=== PATIENT | male | born 1975 | race Caucasian/White ===

== ENCOUNTER 2022-06-22 17:09 | Outpatient (CLI) | payer BC, SELFPAY ==
[2022-06-22 17:41] LABS: Chloride* 104 mmol/L (96-114); Sodium* 141 mmol/L (135-149)
[2022-06-22 17:42] LABS: Potassium* 3.9 mmol/L (3.6-5.1)
[2022-06-22 17:44] LABS: Blood Urea Nitrogen* 23 mg/dL (5-24); Carbon Dioxide* 25 mmol/L (20-32); Creatinine* 1.2 mg/dL (0.5-1.5); Estimated Glomerular Filt Rate 76 ml/min
[2022-06-22 17:45] LABS: Calcium* 9.2 mg/dL (8.4-10.6); Glucose* 99 mg/dL (60-115)
== END 2022-06-22 17:10 | disposition home or self-care (01) ==
LOC: NFLDREF 17:10
PROVIDERS: PCP Family Medicine; Visit Provider Family Medicine
DX: Z01.818 Encounter for other preprocedural examination (principal)
CPT/HCPCS: 80048

== ENCOUNTER 2022-06-27 09:11 | Outpatient (CLI) | payer BC, SELFPAY ==
[2022-06-27 15:42] LABS: SARS PCR* Negative SARS-CoV-2 (Negative)
== END 2022-06-27 09:12 | disposition home or self-care (01) ==
LOC: FBOREF 09:12
PROVIDERS: PCP Family Medicine; Visit Provider Family Medicine
DX: Z11.52 Encounter for screening for COVID-19 (principal)
CPT/HCPCS: 87635

== ENCOUNTER 2023-04-29 07:46 | Outpatient (CLI) | payer BC, SELFPAY | END 2023-04-29 07:47 | disposition home or self-care (01) | PROVIDERS: PCP Family Medicine; Visit Provider Family Medicine | DX: E78.5 Hyperlipidemia, unspecified (principal); Z13.9 Encounter for screening, unspecified | CPT/HCPCS: 80048; 84460; 85025 ==

== ENCOUNTER 2023-07-04 08:03 | Day surgery (SDC) | payer BC, SELFPAY ==
[2023-07-04] MEDS: MIDAZOLAM HCL 1 MG/ML inj IVP (07:40)
[2023-07-04] MEDS: fentaNYL 100 MCG/2 ML inj IVP (07:40)
--- OUTSIDE RECORDS SUMMARY | 2023-07-04 08:05 | XMS_ITS | Continuity of Care Document ---
Author Name Unknown Organization [facility] Address [address] [place] [address] Phone Care Team Providers Care Market Development Specialist Name Role Phone Eliazar Gonzalez MD Unavailable Medications Medication Instructions Dosage Effective Dates (start - stop) Status Comments Do Not Prescribe KJM tria. all meds, calls, appts, etc are to be done at [facility] - Active Procedures Procedure Date PSF, Cervical (Below C2) - WA 2 PSF - Additional Level(s) - WA Lami, Facetectomy/Foraminotomy, Cervical (Stenosis) Lami, Facetectomy/Foraminotomy - Additio nal Level(s) - WA Posterior Instrumentation, 3-6 Segments - WA PSF, Cervical (Below C2) PSF - Additional Level(s) Lami, Facetectomy/Foraminotomy, Cervical (Stenosis) Lami, Facetectomy/Foraminotomy - Additio nal Level(s) Posterior Instrumentation, 3-6 Segments Allograft, Morcelized, and/or BMP Autograft, From Same Incision 2 ACDF - Anterior Cervical Discectomy and Fusion - WA ACDF - Additonal Level - WA Anterior Instrumentation, 2-3 Segments - WA PEEK/ Cage/ Implant, For Interbody Fusio n - WA ACDF - Anterior Cervical Discectomy and Fusion ACDF - Additonal Level(s) Anterior Instrumentation, 2-3 Segments A PEEK/ Cage/ Implant, For Interbody Fusio n Allograft, Morcelized, and/or BMP Advance Directives Directive Yes / No Effective Date File Name No Information Encounters Encounter Description Practice Location Reason(s) For Visit Diagnoses Date Provider Providers Copied on Encounter [facility], [address], [place], [place], [id number], [place] tel:[phone] [facility] No Information 2 Lisa Perea. [facility], [address], [place], [place], [address] , [place]. tel: [phone] [facility], [address], [place], [place], [address], [place] tel:[phone] [facility] No Information Jun- 2 Amidylan Ye. [facility], [address], [place], [address], [place]. tel: [phone] Referring Provider: Eliazar Gonzalez, [facility] [address], [place], [address] . tel:[phone] [facility], [address], [place], [place], [address], [place] tel:[phone] [facility] No Information 2 Lisa Perea. [facility], [address], [place], [address] , [place]. tel: [phone] Referring Provider: Eliazar Gonzalez, [facility] [address], [place], [address] . tel:[phone] [facility], [address], [place], [place], [address], [place] tel:[phone] [facility] No Information 2 Stan Lozada. [facility], [address], [place], [place], [address] , [place]. tel:[phone] Referring Provider: Eliazar Gonzalez, [facility] [address], [place], [address] . tel:[phone] [facility], [address], [place], [address], [place] tel:[phone] [facility] No Information 2 Lisa Perea. [facility], [address], [place], [place], [address] , [place]. tel:[phone] Referring Provider: Eliazar Gonzalez, [facility] [address], [place], [address] . tel:[phone] [facility], [address], [place], [place], [address], [place] tel:[phone] [facility] No Information 2 Lisa Perea. [facility], [address], [place], [place], [address] , [place]. tel:[phone] Family History Family Member Type Diagnosis Age At Onset No Information Payers Payer name Insurance type Covered green party ID Kristina saharafrancoise([place]) [place] [id number] [place] [id number] Social History Type Description Quantity Date Captured Comments Sex Male Smoking Status No Information Chief Complaint And Reason For Visit No Information Reason For Referral Reason For Referral No Information History Of Present Illness Encounter Date Complaint History Of Prese nt Illness No Information Functional Status Date Functional Assessmen t No Information Instructions Date Instruction Additional Infor mation No Information Assessments Type Assessment Date No Information Patient Care Teams Name Effective Dates (start - stop) Status Members No Information
--- OUTSIDE RECORDS SUMMARY | 2023-07-04 08:05 | XMS_ITS | Continuity of Care Document ---
Author Name Unknown Organization [facility] Address [address] [place] [address] Phone Care Team Providers Care Therapy Tech Name Role Phone Eliazar Gonzalez MD Unavailable Medications Medication Instructions Dosage Effective Dates (start - stop) Status Comments Do Not Prescribe KJM tria. all meds, calls, appts, etc are to be done at [facility] - Active Procedures Procedure Date PSF, Cervical (Below C2) - ID 2 PSF - Additional Level(s) - ID Lami, Facetectomy/Foraminotomy, Cervical (Stenosis) Lami, Facetectomy/Foraminotomy - Additio nal Level(s) - ID Posterior Instrumentation, 3-6 Segments - ID PSF, Cervical (Below C2) PSF - Additional Level(s) Lami, Facetectomy/Foraminotomy, Cervical (Stenosis) Lami, Facetectomy/Foraminotomy - Additio nal Level(s) Posterior Instrumentation, 3-6 Segments Allograft, Morcelized, and/or BMP Autograft, From Same Incision 2 ACDF - Anterior Cervical Discectomy and Fusion - ID ACDF - Additonal Level - ID Anterior Instrumentation, 2-3 Segments - ID PEEK/ Cage/ Implant, For Interbody Fusio n - ID ACDF - Anterior Cervical Discectomy and Fusion ACDF - Additonal Level(s) Anterior Instrumentation, 2-3 Segments A PEEK/ Cage/ Implant, For Interbody Fusio n Allograft, Morcelized, and/or BMP Advance Directives Directive Yes / No Effective Date File Name No Information Encounters Encounter Description Practice Location Reason(s) For Visit Diagnoses Date Provider Providers Copied on Encounter [facility], [address], [place], [address], [place] tel:[phone] [facility] No Information 2 Lisa Perea. [facility], [address], [place], [place], [address] , [place]. tel: [phone] [facility], [address], [place], [address], [place] tel:[phone] [facility] No Information Jun- 2 Amidylan Ye. [facility], [address], [place], [address], [place]. tel: [phone] Referring Provider: Eliazar Gonzalez, [facility] [address], [place], [address] . tel:[phone] [facility], [address], [place], [address], [place] tel:[phone] [facility] No Information 2 Lisa Perea. [facility], [address], [place], [place], [address] , [place]. tel: [phone] Referring Provider: Eliazar Gonzalez, [facility] [address], [place], [address] . tel:[phone] [facility], [address], [place], [place], [address], [place] tel:[phone] [facility] No Information 2 Stan Lozada. [facility], [address], [place], [place], [address] , [place]. tel:[phone] Referring Provider: Eliazar Gonzalez, [facility] [address], [place], [address] . tel:[phone] [facility], [address], [place], [address], [place] tel:[phone] [facility] No Information 2 Lisa Perea. [facility], [address], [place], [place], [address] , [place]. tel:[phone] Referring Provider: Eliazar Gonzalez, [facility] [address], [place], [address] . tel:[phone] [facility], [address], [place], [place], [address], [place] tel:[phone] [facility] No Information 2 Lisa Perea. [facility], [address], [place], [place], [address] , [place]. tel:[phone] Family History Family Member Type Diagnosis Age At Onset No Information Payers Payer name Insurance type Covered constitution party ID Kristina saharafrancoise([place]) [place] [id number] [place] [id number] Social History Type Description Quantity Date Captured [...]
[2023-07-04 08:13] VITALS: BMI 38.9
[2023-07-04 08:21] VITALS: BP 138/100; PULSE 91; RESP 16; TEMP 36.9; O2SAT 94
[2023-07-04] MEDS: LACTATED RINGERS 1000 ML 1,000 ML 100 ML IV (08:34)
[2023-07-04] MEDS: OXYCODONE (CR) 10 MG TAB.ER.12H PO (08:34)
[2023-07-04] MEDS: SODIUM CHLORIDE 0.9 % (FLUSH) 10 ML SYRINGE IVF (08:34)
[2023-07-04] MEDS: ACETAMINOPHEN 500 MG TABLET 1000 MG PO (08:35)
--- NOTE | 2023-07-04 10:11 | W.PM.NB ---
Nerve Block Nerve Block Time Seen by Provider: 10:06 Date Seen: 07/04/23 Type of block requested by surgeon for post-operative analgesia: axillary Side: right Time out performed: Yes Verification of patient name: Yes Verification of date of : Yes Site marking: site marked Name of person performing procedure: Issac Continuous monitoring Was continuous monitoring of O2 sat, B/P, quality assurance monitor, recorded every 15 minutes?: Yes Procedure Checklist: sterile prep, needles and gloves Ultrasound guided. Images saved: Yes Medications given in 5ml increments after negative aspiration: Ropivicaine %: 0.5 mL: 30 Needle gauge: 22 Patient tolerated procedure well: Yes Additional comments: Needle noted adjacent to nerve Block Charges Block Charge (with Pro Fee): Brachial Plexus Use of Ultrasound Machine for Block: Yes- US Guidance/pain block
--- NOTE | 2023-07-04 10:12 | W.ANESCHARGE ---
Anesthesia Charges Start Date/Time Anesthesia Start Date: 07/04/23 Anesthesia Start Time: 10:12 Stop Date/Time Anesthesia Stop Date: 07/04/23 Anesthesia Stop Time: 11:51
--- NOTE | 2023-07-04 10:15 | SUR.PREOP ---
TIME?OUT:?1000 PT/RN/MDA?VERIFICATION?OF?SURGICAL?SITE,?PROCEDURE,?AND?CONSENT OBTAINED?PRIOR?TO?INVASIVE?PROCEDURE. right axillary nerve block Shola SARMIENTO, Lino Davenport MDA, PT, and consent
[2023-07-04] MEDS: CEFAZOLIN 2 GM INJ IVP (10:21)
--- NOTE | 2023-07-04 11:30 | PM.ORPRC ---
Procedure Note Date of procedure: 07/04/23 Procedure: PREOPERATIVE DIAGNOSIS: Right upper extremity distal biceps tendon tear, right hand middle finger stenosing tenosynovitis POSTOPERATIVE DIAGNOSIS: Right upper extremity distal biceps tendon tear, right hand middle finger stenosing tenosynovitis NAME OF OPERATION: Primary Repair of the biceps, middle finger A1 tonny release SURGEON: Aftab Nickerson MD PAYROLL ADMINISTRATIVE ASSISTANT: ISAIAH Reyna ANESTHESIA: Axillary block plus monitored anesthesia care ESTIMATED BLOOD LOSS: 5 mL. COMPLICATIONS: None. SPECIMENS: None. DRAINS: None. PREOPERATIVE ANTIBIOTICS: Ancef 3 grams INDICATIONS: The patient is a 47-year-old male with a history of a right elbow injury, sustaining full-thickness disruption of the distal biceps tendon. Additionally, he has been having painful catching of his right hand middle finger. Operative intervention was recommended. The risks, benefits and expected outcomes were discussed in detail. These included but were not limited to: Infection, bleeding, injury to blood vessel or nerve, venous thromboembolism. All questions were answered to their satisfaction. Use of an medical receptionist assistant was necessary throughout the case for patient positioning and safety, soft tissue retraction and closure. PROCEDURE: An axillary block was placed. The patient was placed supine on the operating room table. IV sedation was administered. The right upper extremity was prepped and draped in the usual sterile fashion. The limb was exsanguinated with the Zac bandage. The pneumatic tourniquet was inflated to 250 mm of mercury. A transverse incision was made in the distal palmar crease, at the base of the middle finger. Subcutaneous dissection was taken with tenotomy scissors to the flexor tendons. The A1 tonny was divided longitudinally with the 15 blade and the tenotomy scissors. Attention was then turned to the distal biceps. A transverse incision was made 4 cm distal to the antecubital crease. Subcutaneous dissection was taken with tenotomy scissors to the antecubital veins which were carefully preserved throughout the case. The lateral antebrachial cutaneous nerve was not seen during the case. There was a tube of peritenon which was intact all the way down to the radial tuberosity. This was followed down to the radial tuberosity. It was resected off of the insertion. The Lempert rongeur and the joker elevator were used to debride the radial tuberosity. Dissection was carried proximally, to the biceps tendon. We debrided the distal end of biceps tendon and placed a whipstitch with #2 FiberWire suture. The forearm was placed in maximum supination. We drilled a bicortical guide pin through the radial tuberosity. We drilled an 8 mm unicortical socket. We placed the button on the limbs of the whipstitch and advanced it into the socket through the deep guide pin hole and flipped it on the far cortex of proximal radius. We kept the forearm in maximum supination and flexed the elbow while retracting the limbs of the suture. This advanced the distal biceps tendon into the socket to a depth of 15 mm. We placed both limbs of the suture through the tendon. We placed an 7 mm x 10 mm peek interference screw over the distal side of the tendon, allowing it to walk radially and push the tendon ulnarly. We tied several knots over the top of the screw. This provides an excellent repair of the distal biceps tendon to its anatomic insertion. The wound was irrigated with normal saline. Subcutaneous tissues were closed with a 2-0 Vicryl. Skin was closed with a 3-0 Monocryl in a subcuticular fashion. Nylon sutures were placed in the hands. A dry dressing and sling were applied. Sponge and needle counts were correct x2. The patient tolerated the procedure well. There were no apparent complications. They were carefully transferred to the hospital bed and taken to the postanesthesia care unit in satisfactory condition. PLAN: The patient will be discharged to home. They will follow up in the office next week for a wound check and an AP and lateral view of the elbow, prior to being seen, in preparation for occupational therapy. We will begin gentle active range of motion immediately. Hua day
[2023-07-04 11:49] VITALS: BP 108/70; PULSE 71; RESP 16; TEMP 36.2; O2SAT 95
[2023-07-04 12:06] VITALS: BP 106/80; PULSE 65; RESP 16; O2SAT 95
[2023-07-04 12:21] VITALS: BP 105/73; PULSE 69; RESP 16; O2SAT 93
[2023-07-04 12:36] VITALS: BP 104/74; PULSE 68; RESP 16; TEMP 36.6; O2SAT 94
--- NOTE | 2023-07-17 08:03 | W.ANESCHARGE ---
Anesthesia Charges Start Date/Time Anesthesia Start Date: 07/04/23 Anesthesia Start Time: 10:12 Stop Date/Time Anesthesia Stop Date: 07/04/23 Anesthesia Stop Time: 11:51
== END 2023-07-04 13:06 | disposition home or self-care (01) ==
PROVIDERS: PCP Family Medicine; Visit Provider Orthopaedic Surgery
PROC: (CPT 24341; principal; 2023-07-04 09:45)
DX: S46.211A Strain of muscle, fascia and tendon of other parts of biceps, right arm, initial encounter (principal); M65.331 Trigger finger, right middle finger; M65.841 Other synovitis and tenosynovitis, right hand; G89.18 Other acute postprocedural pain
CPT/HCPCS: 24341; 26055; 01710; 01716; 64415; 76942; A4580; A9270; C1713; J0690; J2250; J2704; J3010; J3490; J7120

== ENCOUNTER 2023-07-30 08:02 | Day surgery (SDC) | payer BC, SELFPAY ==
[2023-07-30] VITALS (16 sets, daily range): BP systolic 98–134; BP diastolic 64–94; PULSE 89–104; RESP 11–21; TEMP 36.2–37.1; O2SAT 92–97; BMI 38.7
--- OUTSIDE RECORDS SUMMARY | 2023-07-30 08:05 | XMS_ITS | Continuity of Care Document ---
Author Name Unknown Organization [facility] Address [address] [place] [address] Phone Care Team Providers Care Well Drill Operator Helper Cable Tool Name Role Phone Eliazar Gonzalez MD Unavailable Medications Medication Instructions Dosage Effective Dates (start - stop) Status Comments Do Not Prescribe KJM tria. all meds, calls, appts, etc are to be done at [facility] - Active Procedures Procedure Date PSF, Cervical (Below C2) - IA 2 PSF - Additional Level(s) - IA Lami, Facetectomy/Foraminotomy, Cervical (Stenosis) Lami, Facetectomy/Foraminotomy - Additio nal Level(s) - IA Posterior Instrumentation, 3-6 Segments - IA PSF, Cervical (Below C2) PSF - Additional Level(s) Lami, Facetectomy/Foraminotomy, Cervical (Stenosis) Lami, Facetectomy/Foraminotomy - Additio nal Level(s) Posterior Instrumentation, 3-6 Segments Allograft, Morcelized, and/or BMP Autograft, From Same Incision 2 ACDF - Anterior Cervical Discectomy and Fusion - IA ACDF - Additonal Level - IA Anterior Instrumentation, 2-3 Segments - IA PEEK/ Cage/ Implant, For Interbody Fusio n - IA ACDF - Anterior Cervical Discectomy and Fusion ACDF - Additonal Level(s) Anterior Instrumentation, 2-3 Segments A PEEK/ Cage/ Implant, For Interbody Fusio n Allograft, Morcelized, and/or BMP Advance Directives Directive Yes / No Effective Date File Name No Information Encounters Encounter Description Practice Location Reason(s) For Visit Diagnoses Date Provider Providers Copied on Encounter [facility], [address], [place], [address], [place] tel:[phone] [facility] No Information 2 Lisa Perea. [facility], [address], [place], [place], [address] , [place]. tel: [phone] [facility], [address], [place], [address], [place] tel:[phone] [facility] No Information Jun- 2 Amidylan Ye. [facility], [address], [place], [address], [place]. tel: [phone] Referring Provider: Eliazar Gonzalez, [facility] [address], [place], [address] . tel:[phone] [facility], [address], [place], [address], [place] tel:[phone] [facility] No Information 2 Lisa Perea. [facility], [address], [place], [address] , [place]. tel: [phone] Referring Provider: Eliazar Gonzalez, [facility] [address], [place], [address] . tel:[phone] [facility], [address], [place], [address], [place] tel:[phone] [facility] No Information 2 Stan Lozada. [facility], [address], [place], [place], [address] , [place]. tel:[phone] Referring Provider: Eliazar Gonzalez, [facility] [address], [place], [address] . tel:[phone] [facility], [address], [place], [address], [place] tel:[phone] [facility] No Information 2 Lisa Perea. [facility], [address], [place], [address] , [place]. tel:[phone] Referring Provider: Eliazar Gonzalez, [facility] [address], [place], [address] . tel:[phone] [facility], [address], [place], [address], [place] tel:[phone] [facility] No Information 2 Lisa Perea. [facility], [address], [place], [place], [address] , [place]. tel:[phone] Family History Family Member Type Diagnosis Age At Onset No Information Payers Payer name Insurance type Covered alliance party ID Kristina saharafrancoise([place] [id number] [place] Of [place] [id number] Social History Type Description Quantity Date Captured [...]
[2023-07-30] MEDS: OXYCODONE (CR) 10 MG TAB.ER.12H PO (08:22)
[2023-07-30] MEDS: ACETAMINOPHEN 500 MG TABLET 1000 MG PO (08:22)
[2023-07-30] MEDS: SODIUM CHLORIDE 0.9 % (FLUSH) 10 ML SYRINGE IVF (08:30)
[2023-07-30] MEDS: LACTATED RINGERS 1000 ML 1,000 ML 100 ML IV ×2 (08:30→12:56)
[2023-07-30] MEDS: fentaNYL 100 MCG/2 ML inj IVP (10:05)
[2023-07-30] MEDS: MIDAZOLAM HCL 1 MG/ML inj IVP (10:05)
--- NOTE | 2023-07-30 10:16 | SUR.PREOP ---
TIME?OUT:?1005 PT/RN/MDA?VERIFICATION?OF?SURGICAL?SITE,?PROCEDURE,?AND?CONSENT OBTAINED?PRIOR?TO?INVASIVE?PROCEDURE.
--- NOTE | 2023-07-30 10:24 | P.NB_ITS ---
Nerve Block Nerve Block Time Seen by Provider: 10:13 Date Seen: 07/30/23 Type of block requested by surgeon for post-operative analgesia: axillary Side: right Time out performed: Yes Verification of patient name: Yes Verification of date of : Yes Site marking: site marked Name of person performing procedure: Issac Continuous monitoring Was continuous monitoring of O2 sat, B/P, classroom monitor, recorded every 15 minutes?: Yes Procedure Checklist: sterile prep, needles and gloves Ultrasound guided. Images saved: Yes Medications given in 5ml increments after negative aspiration: Ropivicaine %: 0.5 mL: 30 Needle gauge: 22 Decadron (mg): 10 Precedex (mcg): 25 Patient tolerated procedure well: Yes Additional comments: Needle noted adjacent to nerve Block Charges Block Charge (with Pro Fee): Brachial Plexus Use of Ultrasound Machine for Block: Yes- US Guidance/pain block
[2023-07-30] MEDS: CEFAZOLIN 1 GM inj 3 GM IVP ×2 (11:28→15:24)
--- NOTE | 2023-07-30 12:43 | CRLHL7_ITS ---
For Patients: As a result of the Century Cures Act, medical imaging exams and procedure reports are released immediately into your electronic medical record. You may view this report before your referring provider. If you have questions, please contact your health care provider. Indication: Biceps fixation Technique: Multiple intraoperative radiographs of the right elbow submitted. IMPRESSION: Operative fixation of the biceps tendon with soft tissue anchor in the proximal radius. Dictated by Darrell Aleman MD @ 07/31/2023 10:53:46 AM (Electronically Signed)
--- NOTE | 2023-07-30 13:15 | P.ORPRC_ITS ---
Procedure Note Date of procedure: 07/30/23 Procedure: PREOPERATIVE DIAGNOSIS: Recurrent Right upper extremity distal biceps tendon tear POSTOPERATIVE DIAGNOSIS: Recurrent Right upper extremity distal biceps tendon tear NAME OF OPERATION: Revision Repair SURGEON: Aftab Nickerson MD SECOND SHIFT SUPERVISOR: Makenzie Solis PA-C ANESTHESIA: General endotracheal ESTIMATED BLOOD LOSS: 5 mL. COMPLICATIONS: None. SPECIMENS: None. DRAINS: None. PREOPERATIVE ANTIBIOTICS: Ancef 3 grams INDICATIONS: The patient is a 47-year-old male who previously underwent distal biceps repair. It was noted postoperatively that button was not completely through the far cortex and flipped on x-ray. Therefore, he was followed closely. The follow-up x-ray shows displacement of the button. This was worrisome for fixation failure. Therefore, operative intervention was recommended. The risks, benefits and expected outcomes were discussed in detail. These included but were not limited to: Infection, bleeding, injury to blood vessel or nerve, venous thromboembolism. All questions were answered to their satisfaction. Use of an financial services assistant was necessary throughout the case for patient positioning and safety, soft tissue retraction and closure. PROCEDURE: General anesthesia was administered. The patient was placed supine on the operating room table. The right upper extremity was prepped and draped in the usual sterile fashion. The limb was exsanguinated with the Zac bandage. The pneumatic tourniquet was inflated to 250 mm of mercury. The previously placed transverse incision was utilized. Subcutaneous dissection was taken with tenotomy and Metzenbaum scissors to the antecubital veins. One of the crossing veins was cauterized and divided. Just deep to the veins was a marked amount of scarring. The distal biceps tendon was palpable in this scar. It was dissected free with tenotomy scissors. Biceps was completely out of the socket and retracted about 2 cm. The suture was intact down to the radial tuberosity. We followed the suture down to the radius and then divided it at the screw which was still in the socket. The screwdriver was placed in the screw and it was removed intact. There was suture deep in the socket which was debrided and this pulled the button out of the far pilot steam yacht hole. We debrided the socket with 8 mm Reamer by hand. The socket appeared to be minimally enlarged. It was perhaps 8.25-8.5 mm in diameter. We debrided the distal end of biceps tendon and placed a new whipstitch with #2 FiberWire suture. The forearm was placed in maximum supination. We placed the button on the limbs of the whipstitch and advanced it into the socket through the deep guide pin hole and flipped it on the far cortex of proximal radius. Its placement was confirmed flipped on the far cortex with several intraoperative x-rays. In We kept the forearm in maximum supination and flexed the elbow while retracting the limbs of the suture. This advanced the distal biceps tendon into the socket to a depth of 10 mm. We placed 1 limb of the suture through the tendon and tied several knots over the top of the tendon. We placed an 8 mm x 10 mm peek interference screw over the radial side of the tendon, pushing it ulnarly. We tied several knots over the top of the screw. This provides an excellent repair of the distal biceps tendon to its anatomic insertion. The wound was irrigated with normal saline. Subcutaneous tissues were closed with a 2-0 Vicryl. Skin was closed with a 3-0 Monocryl in a subcuticular fashion. A dry dressing and sling were applied. Sponge and needle counts were correct x2. The patient tolerated the procedure well. There were no apparent complications. They were carefully transferred to the hospital bed and taken to the postanesthesia care unit in satisfactory condition. PLAN: The patient will be discharged to home. They will follow up in the office next week for a wound check and an AP and lateral view of the elbow, prior to being seen, in preparation for occupational therapy. We will begin gentle active range of motion immediately.
--- NOTE | 2023-07-30 13:39 | CRLHL7_ITS ---
For Patients: As a result of the Cures Act, medical imaging exams and procedure reports are released immediately into your electronic medical record. You may view this report before your referring provider. If you have questions, please contact your health care provider. Indication: Right revision distal biceps tendon repair Technique: 4radiographic images of the right forearm. IMPRESSION: Postop changes of biceps tendon repair with soft tissue anchor. Dictated by Darrell Aleman MD @ 07/31/2023 11:17:20 AM (Electronically Signed)
--- NOTE | 2023-07-30 13:49 | W.ANESCHARGE ---
Anesthesia Charges Start Date/Time Anesthesia Start Date: 07/30/23 Anesthesia Start Time: 11:27 Stop Date/Time Anesthesia Stop Date: 07/30/23 Anesthesia Stop Time: 13:43
--- NOTE | 2023-07-30 15:24 | SUR.PHASEII ---
PATIENT BACK TO OR AT 1500- CONSENT RESIGNED
--- NOTE | 2023-07-30 15:42 | P.ORPRC_ITS ---
Procedure Note Date of procedure: 07/30/23 Procedure: PREOPERATIVE DIAGNOSIS: Right upper extremity distal biceps tendon repair POSTOPERATIVE DIAGNOSIS: Right upper extremity distal biceps tendon repair NAME OF OPERATION: Repair exploration, with closure and splint application SURGEON: Aftab Nickerson MD INDUSTRIAL RELATIONS MANAGER: Makenzie Solis PA-C ANESTHESIA: Axillary block plus monitored anesthesia care ESTIMATED BLOOD LOSS: 5 mL. COMPLICATIONS: None. SPECIMENS: None. DRAINS: None. PREOPERATIVE ANTIBIOTICS: Ancef 3 grams INDICATIONS: Andrei underwent revision repair of his right upper extremity distal biceps repair this morning. Upon emergence from anesthesia he forcefully punched straight up into the air, extending his right elbow to 0?. There was concern that the he may have re-ruptured his repair. Therefore, we recommended that we take him back to the operating room to explore our repair. The risks, benefits and expected outcomes were discussed in detail. These included but were not limited to: Infection, bleeding, injury to blood vessel or nerve, venous thromboembolism. All questions were answered to their satisfaction. Use of an sales service assistant was necessary throughout the case for patient positioning and safety, soft tissue retraction and closure. PROCEDURE: An axillary block was placed. The patient was placed supine on the operating room table. IV sedation was administered. The right upper extremity was prepped and draped in the usual sterile fashion. The limb was exsanguinated with the Zac bandage. The pneumatic tourniquet was inflated to 250 mm of mercury. The incision was opened with the tenotomy scissors and 15 blade. Blunt dissection was carried down to the distal biceps tendon. It was followed down to the radial tuberosity and was found to be intact. The screw remains well placed. We pulled on the distal biceps with the Ferdinand Hernandez forceps, stressing the repair. It was found to be solidly intact. The wound was irrigated with normal saline. The wound was irrigated with normal saline. Subcutaneous tissues were closed with a 2-0 Vicryl. Skin was closed with a 3-0 Monocryl in a subcuticular fashion. A dry dressing, long-arm posterior splint and sling were applied. Sponge and needle counts were correct x2. The patient tolerated the procedure well. There were no apparent complications. They were carefully transferred to the hospital bed and taken to the postanesthesia care unit in satisfactory condition. PLAN: The patient will be discharged to home. They will follow up in the office next week for a wound check and an AP and lateral view of the elbow, prior to being seen.
--- NOTE | 2023-07-30 16:16 | W.ANESCHARGE ---
Anesthesia Charges Start Date/Time Anesthesia Start Date: 07/30/23 Anesthesia Start Time: 15:11 Stop Date/Time Anesthesia Stop Date: 07/30/23 Anesthesia Stop Time: 16:15
== END 2023-07-30 17:30 | disposition home or self-care (01) ==
PROVIDERS: PCP Family Medicine; Visit Provider Orthopaedic Surgery
PROC: (CPT 24341; principal; 2023-07-30 09:30)
DX: T84.122A Displacement of internal fixation device of bone of right forearm, initial encounter (principal); S46.211A Strain of muscle, fascia and tendon of other parts of biceps, right arm, initial encounter; G89.18 Other acute postprocedural pain
CPT/HCPCS: 24341; 20680; 24999; 01716; 64415; 73090; 76942; A4580; A9270; C1713; J0330; J0690; J1100; J1170; J2250; J2371; J2405; J2704; J2795; J3010; J3490; J7120

== ENCOUNTER 2023-10-17 08:00 | Outpatient (CLI) | payer BC, SELFPAY ==
--- OUTSIDE RECORDS SUMMARY | 2023-10-17 08:03 | XMS_ITS | Continuity of Care Document ---
Author Name Unknown Organization [facility] Address [address] [place] [address] Phone Care Team Providers Care Social Security Specialist Name Role Phone Eliazar Gonzalez MD Unavailable Medications Medication Instructions Dosage Effective Dates (start - stop) Status Comments Do Not Prescribe KJM tria. all meds, calls, appts, etc are to be done at [facility] - Active Procedures Procedure Date PSF, Cervical (Below C2) - FL 2 PSF - Additional Level(s) - [place] Lami, Facetectomy/Foraminotomy, Cervical (Stenosis) Lami, Facetectomy/Foraminotomy - Additio nal Level(s) - FL Posterior Instrumentation, 3-6 Segments - FL PSF, Cervical (Below C2) PSF - Additional Level(s) Lami, Facetectomy/Foraminotomy, Cervical (Stenosis) Lami, Facetectomy/Foraminotomy - Additio nal Level(s) Posterior Instrumentation, 3-6 Segments Allograft, Morcelized, and/or BMP Autograft, From Same Incision 2 ACDF - Anterior Cervical Discectomy and Fusion - FL ACDF - Additonal Level - FL Anterior Instrumentation, 2-3 Segments - [place] PEEK/ Cage/ Implant, For Interbody Fusio n - [place] ACDF - Anterior Cervical Discectomy and Fusion ACDF - Additonal Level(s) Anterior Instrumentation, 2-3 Segments A PEEK/ Cage/ Implant, For Interbody Fusio n Allograft, Morcelized, and/or BMP Advance Directives Directive Yes / No Effective Date File Name No Information Encounters Encounter Description Practice Location Reason(s) For Visit Diagnoses Date Provider Providers Copied on Encounter [facility], [address], [place], [place], [id number], [place] tel:[phone] [facility] No Information 2 Lisa Perea. [facility], [address], [place], [place], [id number] , [place]. tel: [phone] [facility], [address], [place], [place], [address], [place] tel:[phone] [facility] No Information Jun- 2 Amidylan Ye. [facility], [address], [place], [address], [place]. tel: [phone] Referring Provider: Eliazar Gonzalez, [facility] [address], [place], [address] . tel:[phone] [facility], [address], [place], [place], [address], [place] tel:[phone] [facility] No Information 2 Lisa Perea. [facility], [address], [place], [place], [address] , [place]. tel: [phone] Referring Provider: Eliazar Gonzalez, [facility] [address], [place], [address] . tel:[phone] [facility], [address], [place], [place], [address], [place] tel:[phone] [facility] No Information 2 Stan Lozada. [facility], [address], [place], [place], [address] , [place]. tel:[phone] Referring Provider: Eliazar Gonzalez, [facility] [address], [place], [address] . tel:[phone] [facility], [address], [place], [address], [place] tel:[phone] [facility] No Information 2 Lisa Perea. [facility], [address], [place], [place], [address] , [place]. tel:[phone] Referring Provider: Eliazar Gonzalez, [facility] [address], [place], [address] . tel:[phone] [facility], [address], [place], [place], [address], [place] tel:[phone] [facility] No Information 2 Lisa Perea. [facility], [address], [place], [place], [address] , [place]. tel:[phone] Family History Family Member Type Diagnosis Age At Onset No Information Payers Payer name Insurance type Covered green party ID Kristina saharafrancoise([place] [id number] [place] [id number] Social History Type Description Quantity Date Captured [...]
== END 2023-10-17 08:01 | disposition home or self-care (01) ==
PROVIDERS: PCP Family Medicine; Visit Provider Family Medicine
DX: E78.2 Mixed hyperlipidemia (principal); R53.83 Other fatigue
CPT/HCPCS: 80061; 82565; 84460; 85025

== ENCOUNTER 2024-01-09 10:40 | Outpatient (CLI) | payer BC, SELFPAY ==
--- OUTSIDE RECORDS SUMMARY | 2024-01-17 11:56 | XMS_ITS | Continuity of Care Document ---
Author Name Unknown Organization [facility] Address [address] [place] [address] Phone Care Team Providers Care Replanting Machine Operator Name Role Phone Eliazar Gonzalez MD Unavailable Medications Medication Instructions Dosage Effective Dates (start - stop) Status Comments Do Not Prescribe KJM tria. all meds, calls, appts, etc are to be done at [facility] - Active Procedures Procedure Date PSF, Cervical (Below C2) - [place] 2 PSF - Additional Level(s) - [place] Lami, Facetectomy/Foraminotomy, Cervical (Stenosis) Lami, Facetectomy/Foraminotomy - Additio nal Level(s) - [place] Posterior Instrumentation, 3-6 Segments - RI PSF, Cervical (Below C2) PSF - Additional Level(s) Lami, Facetectomy/Foraminotomy, Cervical (Stenosis) Lami, Facetectomy/Foraminotomy - Additio nal Level(s) Posterior Instrumentation, 3-6 Segments Allograft, Morcelized, and/or BMP Autograft, From Same Incision 2 ACDF - Anterior Cervical Discectomy and Fusion - RI ACDF - Additonal Level - RI Anterior Instrumentation, 2-3 Segments - RI PEEK/ Cage/ Implant, For Interbody Fusio n - [place] ACDF - Anterior Cervical Discectomy and Fusion ACDF - Additonal Level(s) Anterior Instrumentation, 2-3 Segments A PEEK/ Cage/ Implant, For Interbody Fusio n Allograft, Morcelized, and/or BMP Advance Directives Directive Yes / No Effective Date File Name No Information Encounters Encounter Description Practice Location Reason(s) For Visit Diagnoses Date Provider Providers Copied on Encounter [facility], [address], [place], [place], [id number], [place] tel:[phone] [facility] No Information 2 Lisa Perea. [facility], [address], [place], [place], [address] , [place]. tel: [phone] [facility], [address], [place], [place], [address], [place] tel:[phone] [facility] No Information Jun- 2 Amidylan Ye. [facility], [address], [place], [address], [place]. tel: [phone] Referring Provider: Eliazar Gonzalez, [facility] [address], [place], [address] . tel:[phone] [facility], [address], [place], [place], [address], [place] tel:[phone] [facility] No Information 2 Lisa Perea. [facility], [address], [place], [place], [address] , [place]. tel: [phone] Referring Provider: Eliazar Gonzalez, [facility] [address], [place], [address] . tel:[phone] [facility], [address], [place], [place], [address], [place] tel:[phone] [facility] No Information 2 Stan Lozada. [facility], [address], [place], [place], [address] , [place]. tel:[phone] Referring Provider: Eliazar Gonzalez, [facility] [address], [place], [address] . tel:[phone] [facility], [address], [place], [address], [place] tel:[phone] [facility] No Information 2 Lisa Perea. [facility], [address], [place], [place], [address] , [place]. tel:[phone] Referring Provider: Eliazar Gonzalez, [facility] [address], [place], [address] . tel:[phone] [facility], [address], [place], [place], [address], [place] tel:[phone] [facility] No Information 2 Lisa Perea. [facility], [address], [place], [place], [address] , [place]. tel:[phone] Family History Family Member Type Diagnosis Age At Onset No Information Payers Payer name Insurance type Covered alliance party ID Kristina saharafrancoise([place] [id number] [place] [id number] Social History Type Description Quantity Date Captured [...]
--- OUTSIDE RECORDS SUMMARY | 2024-01-17 11:57 | XMS_ITS | Clinical Summary ---
Author Name Unknown Organization [employer] [facility] [employer] [facility] Address [place], [place] [address] Care Team Providers Care Food Service Aide Name Role Phone Darrell Strauss MD Primary Care Provider + Allergies Active Allergy Reactions Criticality Noted Date Comments Homeopathic Products Runny Nose 03/16/2006 Medications Medication Sig Dispensed Refills Start Date End Date Status inhaler, for use with solution (AEROCHAMBER)Indicat ions:Unspecified asthma, with exacerbation As directed. For home use. 1 Device 0 01/26/2010 Active Additional Information Patient taking differently:Miscell. (Med.Supl.;Non-Drugs),For home use., Reported on 02/06/2022 inhalational spacing deviceIndications:Mi ld intermittent asthma without complication For home use. 1 Device 03/17/2018 Active betamethasone dipropionate 0.05% (DIPROLENE) 0.05 % ointmentIndications: Psoriasis Apply topically to affected area(s) 2 times daily. 50 g 1 03/17/2018 Active Additional Information Patient taking differently:TopicalBID PRN, Reported on 06/30/2022 albuterol HFA (PROAIR HFA) 90 mcg/actuation inhalerIndications:M ild intermittent asthma without complication Inhale 1-2 Puffs by mouth every 6 hours if needed. 1 Inhaler 6 03/18/2018 Active ranitidine (ZANTAC) 150 mg tablet Take 150 mg by mouth 2 times daily if needed. 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 90 tablet 3 03/16/2019 Active Additional Information Patient not taking.Reported on 01/16/2024 montelukast (SINGULAIR) 10 mg tabletIndications:Dy slipidemia (high LDL; low HDL) Take 1 tablet by mouth at bedtime. 90 tablet 3 03/16/2019 Active atorvastatin (LIPITOR) 10 mg tabletIndications:Dy slipidemia (high LDL; low HDL) Take 1 tablet by mouth at bedtime. 90 tablet 3 03/16/2019 Active LORazepam (ATIVAN) 0.5 mg tabIndications:Couns eling about travel TAKE 1 TABLET BY MOUTH EVERY 6 HOURS NEEDED FOR ANXIETY 20 tablet 04/21/2019 Active acetaminophen (TYLENOL EXTRA STRGTH) 500 mg tabletIndications:Po stoperative pain after spinal surgery Take 2 Tablets (1,000 mg) by mouth every 6 hours. Max acetaminophen dose: 4000mg in 24 hrs. 0 02/07/2022 Active fexofenadine HCl (DAYDAY ORAL) Take by mouth. Active aspirin (ECOTRIN) 81 mg enteric coated tabletIndications:Hy perlipidemia, unspecified hyperlipidemia type Take 1 Tablet (81 mg) by mouth once daily with a meal. Resume postoperative day #3 0 06/30/2022 Active methotrexate (RHEUMATREX) 2.5 mg tablet TAKE 6 TABLETS BY MOUTH EVERY WEEK 04/29/2023 Active folic acid 1 mg tablet Take 1 mg by mouth once daily. 04/29/2023 Active oxyCODONE (ROXICODONE) 5 mg immediate release tabletIndications:Ru pture of biceps tendon, initial encounter Take 1 Tablet (5 mg) by mouth every 4 hours if needed for Pain. 10 Tablet 06/29/2023 Active sertraline (ZOLOFT) 50 mg tablet Take 50 mg by mouth every morning. 01/14/2024 Active DULoxetine (CYMBALTA) 60 mg Delayed-release capsule 01/14/2024 Active omeprazole (PRILOSEC) 20 mg Delayed-Release capsule 01/13/2024 Active amoxicillin (AMOXIL) 875 mg tablet Take 875 mg by mouth two times daily. 01/09/2024 Active cyclobenzaprine (FLEXERIL) 10 mg tablet 01/15/2024 Active Active Problems Problem Noted Date Diagnosed Date Cervical stenosis of spine 06/29/2022 Cervical spinal stenosis 02/07/2022 Asthma, mild intermittent 05/14/2018 Other and unspecified hyperlipidemia 12/23/2008 Encounter for long-term (current) use of other m edications 12/23/2008 Anxiety and depression 08/02/2007 Pain in joint, shoulder region 11/07/2006 Lumbago 11/07/2006 Right carpal tunnel syndrome Encounters Date Type Department Care Team Description 01/16/2024 1:30 PM CDT Office Visit [facility] [address] [place] [address] León Arthur MD Consult (Blood in the urine) 01/15/2024 Travel 12/27/2023 6:17 AM CDT - 12/27/2023 8:26 AM CDT Emergency [facility] [address] [place] [address] Griselda Reed MD Katzung, Katherine Graham, MD Hematuria, unspecified type (Primary Dx); History of nephrolithiasis Discharge Disposition: Home Self Care 12/27/2023 Travel from Last 3 Months Immunizations Name Administration Dates Next Due AMB Influenza, IIV3 (Age >=3 years)(Flu Clinic Only) 08/06/2011,07/31/2010,07/29/2009,2007 AMB Influenza, IIV4 PF (=>6 mos Flulaval,Fluzone Fluarix)(Flu Clinic Only) 07/09/2018,08/02/2017,07/22/2014 HepA-HepB (Twinrix) 04/20/2016,06/19/2012,2011 Influenza A (H1N1), Inactiva heidy (Age >=3 Years) 10/04/2009 Influenza, IIV3 (Age >=3 years) 08/01/2012,09/03 Influenza, IIV4 07/18/2015 MMR 06/09/1990 Polio Virus, Unspecified 03/01/1982,01/18/1979 Td (Age >=7 Years) 09/17/1995 Td, Preservative Free (age > = 7 Years) 07/29/2007 Tdap 04/20/2016 Tuberculin (PPD) 05/24/2003 Typhoid (injectable) 03/16/2019,02/05/2012 Family History Medical History Relation Name Comments Other Father LUMBAR TUMOR Diabetes Maternal Grandfather Heart Disease Maternal Grandfather Other Maternal Grandfather EMPHYSE MA Hypertension Mother Psychiatric illness Mother DEPRESSI ON Diabetes Paternal Grandmother Relation Name Status Comments Brother Daughter Alive Father Alive Maternal Grandfather Maternal Grandmother Alive Mother Alive Paternal Grandfather Paternal Grandmother Alive Sister Alive Son Alive Social History Tobacco Use Types Packs/Day Years Used Date Smoking Tobacco: Never Smokeless Tobacco: Never Tobacco Cessation:Counseling Given: Yes Alcohol Use Standard Drinks/Week Comments Yes 0 (1 standard drink = 0.6 oz pur e alcohol) rarely PHQ-2 Answer Date Recorded PHQ-2 Score 0 12/15/2018 Social Connections Answer Date Recorded Frequency of Communication with Friends and Fami ly Not on file 01/21/2023 Sex and Gender Information Value Date Recorded Sex Assigned at Not on file Gender Identity Not on file Sexual Orientation Not on file Obstetrics History Last Filed Vital Signs Vital Sign Reading Time Taken Comments Blood Pressure 143/88 01/16/2024 1:41 PM CDT Pulse 102 01/16/2024 1:41 PM CDT Temperature 36.4 ??C (97.6 ??F) 12/27/2023 6:20 AM CD T Respiratory Rate 16 12/27/2023 7:30 AM CDT Oxygen Saturation 98% 12/27/2023 8:15 AM CDT Inhaled Oxygen Concentration - - Weight 125.4 kg (276 lb 8 oz) 01/16/2024 1:41 PM CDT Height 185.4 cm (6' 1) 12/27/2023 6:20 AM CDT Body Mass Index 36.48 12/27/2023 6:20 AM CDT Plan of Treatment Upcoming Encounters Date Type Department Care Team (Late st Contact Info) Description 01/20/2024 2:30 PM CDT Appointment [address] [address] Health Maintenance Due Date Last Done Comments HIV for age 15-65 1991 Hepatitis C screening for age 18-79 1994 BMI (ht and wt on same day) for age 18+ 03/16/2020 03/16/2019, 07/25/2018, 05/28/2018, Additional history exists Depression screening for age 12+ 03/18/2020 03/18/2019, 03/16/2019, 07/25/2018, Additional history exists Colonoscopy through age 75 2021 COVID-19 vaccine series (2022- season) 2023 02/16/2021, 01/18/2021 Lipids for age 45-75 03/16/2024 03/16/2019, 03/17/2018, 04/19/2017, Additional history exists Influenza for age 9-49 06/14/2024 8, 08/02/2017, 07/18/2015, Additional history exists Tetanus booster 04/20/2026 04/20/2016, 07/14, 09/17/1995 Tdap Completed 04/20/2016 Pneumococcal series for age 6-64 Aged Out No longer eligible based on patient's age to complete this topic Medical Devices Implanted Type Area Associate Professor Of Geology Device Identifier Shelf Expiration Date Model / Serial / Lot Stent Contour [id number] Prcflx 180-224 Microvas - [id number] Implanted:Qty: 1 on 03/16/2006 at [facility] Right: Ureter [facility] [place] Urology 180-224# / / [id number] Bone Matrix 6cc [place] Dbf Putty [facility] - [id number] Implanted:Qty: 1 on 02/06/2022 by Eliazar Gonzalez MD at [facility] N/A: Cervical Vertebrae [employer] Spine/Ortho 12/31/2023 [id number] / [id number] / Spacer Cerv Lg 7mm Endo Skeleton Tc - [id number] Implanted:Qty: 2 on 02/06/2022 by Eliazar Gonzalez MD at [facility] N/A: Cervical Vertebrae Medtronic Spine/Ortho 08/11/2024 [id number] / / [id number] Plate Cerv 2lvl 39mm Zevo Ant - [id number] Implanted:Qty: 1 on 02/06/2022 by Eliazar Gonzalez MD at [facility] N/A: Cervical Vertebrae Med[employer] Spine/Ortho [id number] / / NONE Screw Cerv Ant 3.5x17mm Zevo Variable Slf Drilling - [id number] Implanted:Qty: 6 on 02/06/2022 by Eliazar Gonzalez MD at [facility] N/A: Cervical Vertebrae Med[employer]onic Spine/Ortho [id number] / / NONE Screw Cerv 3.5x14mm Infinity Multi Axial - [id number] Implanted:Qty: 1 on 06/29/2022 by Elaizar Gonzalez MD at [facility] Spine [employer]tronic Spine/Ortho [id number] / / Fortino Cerv 3.5x30mm Infinity Pre-Cut - [id number] Implanted:Qty: 2 on 06/29/2022 by Eliazar Gonzalez MD at [facility] Spine Medtronic Spine/Ortho [id number] / / Bone Matrix 6cc Juan Carlos Dbf Putty Dbm - [id number] Implanted:Qty: 1 on 06/29/2022 by Eliazar Gonzalez MD at [facility] Lumbar Vertebrae Medtronic Spine/Ortho 05/13/2024 [id number] / [id number] / Infinity Set Screws Implanted:Qty: 4 on 06/29/2022 by Eliazar Gonzalez MD at [facility] Spine Medtronic [id number] / / NA Screw Cerv 3.5x16mm Infinity Multi Axial - [id number] Implanted:Qty: 1 on 06/29/2022 by Eliazar Gonzalez MD at [facility] Spine Medtronic Spine/Ortho [id number] / / Screw Cerv 4.5x22mm Infinity Multi Axial - [id number] Implanted:Qty: 2 on 06/29/2022 by Eliazar Gonzalez MD at [facility] Spine Medtronic Spine/Ortho [id number] / / Procedures Procedure Name Priority Date/Time Associated Diagnosis Comments PATH URINE CYTOLOGY Routine 01/16/2024 2 :20 PM CDT Cr hematuria CT ABDOMEN PELVIS STONE PROTOCOL WO STAT 12/27/2023 7:48 AM CDT URINALYSIS MICROSCOPIC STAT 12/27/2023 6:56 AM CDT UA W/ SEDIMENT EXAM REFLEXED PER CRITERIA STAT 12/27/2023 6:56 AM CDT BASIC METABOLIC PANEL STAT 12/27/2023 6:41 AM CDT CBC W PLT NO DIFF STAT 12/27/2023 6:4 1 AM CDT LIPID PANEL Routine 03/16/2019 9:55 AM CDT Dyslipidemia (high LDL; low HDL) from Last 3 Months or Most Recently Relevant to Health Maintenance Results * PATH URINE CYTOLOGY (01/16/2024 2:20 PM CDT) Case Report Medical Cytology Report ? Case: [id number] ? Authorizing Provider: ??León Arthur MD Collected: ? 01/16/2024 1420 ? Ordering Location: ? [facility] ?Received: ?01/16/2024 1420 ? Clinic ? Pathologist: ? Anaya Kemp ? MD Jessica ? Specimen: ?Urine Void ? 01/17/2024 11:[address] [facility] 5 Minutes [facility] Final Diagnosis URINE FOR CYTOLOGY: 1. Negative for high grade urothelial carcinoma 2. Scant cellularity; blood present 3. See comment 01/17/2024 11:32 AM [facility] Comment According to the Mile system of reporting urinary tract cytology, the diagnosis of negative for high grade urothelial carcinoma indicates the sample is composed of benign urothelial cells and that cells that could remotely raise the suspicion of high grade urothelial carcinoma are absent. This does not and cannot exclude the possibility of a low grade urothelial neoplasm. Of note only scant urothelial cells were available for evaluation. Such factors may limit sensitivity for the detection of urothelial carcinoma. ??If there is persistent concern for malignancy, consider submitting an additional specimen for evaluation. 01/17/2024 11:32 AM [facility] Clinical Information The patient is a 48 y.o. male with gross hematuria. 01/17/2024 11:[address] [facility] 5 Minutes [facility] Gross Description A) SOURCE: Urine, Voided The specimen consists of 60 cc of sweetie hazy fluid from which the following is prepared: ? -1 Papanicolaou stained ThinPrep slide 01/17/2024 11:32 AM CDT [facility] Microscopic Description Specimen adequacy: Adequate for interpretation. All slides were reviewed. The microscopic appearance substantiates the diagnosis. 01/17/2024 11:32 AM CDT [facility] Additional Information Cytology is screened at [facility] - [address], [place] [address] and [facility] - [address], [place] [address] and [facility] - [address] [place] [address] [facility] - [address], [place] [address] 01/17/2024 11:32 AM CDT [facility] Urine URINE SPECIMEN / Unknown Non-Blood / Unknown 01/16/2024 2:20 PM CDT 01/16/2024 2:20 PM CDT León Arthur MD PATHOLOGY/CYTOL OGY Performing Organization Address City/State/[facility] Co de Phone Number [facility] [address] [place] [address], [place] * CT ABDOMEN PELVIS STONE PROTOCOL WO (12/27/2023 7:48 AM CDT) Anatomical Region Laterality Modality Abdomen, Pelvis, AORTA, LIVER, SPLEEN Computed Tomography 12/27/2023 8:13 AM CDT Impressions 12/27/2023 8:13 AM CDT 1. Right-sided intrarenal calculi with the largest measuring 7 mm. No evidence of a ureteral calculus or hydroureteronephrosis. 2. Small hiatal hernia. 3. No evidence of acute intra-abdominal/pelvic process on this unenhanced CT. Please note that all CT scans at this facility use dose modulation, iterative reconstruction, and/or weight-based dosing when appropriate to reduce radiation dose to as low as reasonably achievable. Dictated by Christopher Lino MD @ 12/27/2023 8:13:45 AM (Electronically Signed) Narrative 12/27/2023 8:13 AM CDT For Patients: ??As a result of the Cures Act, medical imaging exams and procedure reports are released immediately into your electronic medical record. ??You may view this report before your referring provider. ??If you have questions, please contact your health care provider. INDICATION: Flank pain, kidney stone suspected TECHNIQUE: CT abdomen and pelvis without contrast, stone protocol. COMPARISON: None. FINDINGS: Kidney/ureters: ??Kidneys are normal in caliber. Right-sided intrarenal calculi with the largest measuring 7 mm. No evidence of a ureteral calculus or hydroureteronephrosis. No bladder wall thickening. Liver/gallbladder/bile ducts: ??The liver is normal in size, shape and attenuation. Gallbladder is normal without visualized stones or inflammation. No biliary dilatation. Spleen/pancreas/adrenal glands: ??The spleen, adrenal glands and pancreas are within normal limits. GI tract: Small hiatal hernia. Mild-moderate stool burden throughout the colon. No bowel obstruction or inflammation. Unremarkable appearing appendix. Abdominal wall/omentum/peritoneum: ??No free air or significant free fluid. No mass or inflammation. Small fat containing umbilical hernia. Vessels: Mild aortoiliac atherosclerosis. Lymph nodes: No lymphadenopathy. Pelvis: Unremarkable pelvis. Lower chest: Unremarkable. Bones: No acute osseous abnormality. Procedure Note Christopher Lino MD - 12/27/2023 For Patients: As a result of the Cures Act, medical imagingexams and procedure reports are released immediately into your electronicmedical record. You may view this report before your referring provider.If you have questions, please contact your health care provider. INDICATION: Flank pain, kidney stone suspected TECHNIQUE: CT abdomen and pelvis without contrast, stone protocol. COMPARISON: None. FINDINGS: Kidney/ureters: Kidneys are normal in caliber. Right-sided intrarenalcalculi with the largest measuring 7 mm. No evidence of a ureteralcalculus or hydroureteronephrosis. No bladder wall thickening. Liver/gallbladder/bile ducts: The liver is normal in size, shape andattenuation. Gallbladder is normal without visualized stones orinflammation. No biliary dilatation. Spleen/pancreas/adrenal glands: The spleen, adrenal glands and pancreasare within normal limits. GI tract: Small hiatal hernia. Mild-moderate stool burden throughout thecolon. No bowel obstruction or inflammation. Unremarkable appearingappendix. Abdominal wall/omentum/peritoneum: No free air or significant free fluid.No mass or inflammation. Small fat containing umbilical hernia. Vessels: Mild aortoiliac atherosclerosis. Lymph nodes: No lymphadenopathy. Pelvis: Unremarkable pelvis. Lower chest: Unremarkable. Bones: No acute osseous abnormality. IMPRESSION: 1. Right-sided intrarenal calculi with the largest measuring 7 mm. Noevidence of a ureteral calculus or hydroureteronephrosis. 2. Small hiatal hernia. 3. No evidence of acute intra-abdominal/pelvic process on this unenhancedCT. Please note that all CT scans at this facility use dose modulation,iterative reconstruction, and/or weight-based dosing when appropriate toreduce radiation dose to as low as reasonably achievable. Dictated by Christopher Lino MD @ 12/27/2023 8:13:45 AM (Electronically Signed) Griselda Reed MD CT * (ABNORMAL) URINALYSIS MICROSCOPIC (12/27/2023 6:56 AM CDT) RBC >100(A) 0-2, None Seen /HPF 12/27/2023 7:25 AM [facility] Comment:Microscopic done on unspun urine. WBC 3-5 0-2, 3-5, None Seen /HPF 12/27/2023 7:25 AM T [facility] Comment:Microscopic done on unspun urine. BACTERIA None Seen None Seen, Rare, Few Bacteria/ HPF 12/27/2023 7:25 AM [facility] Comment:Microscopic done on unspun urine. EPITHELIAL CELLS None Seen None Seen, Few Epi/HPF 12/27/2023 7:25 AM [facility] Comment:Microscopic done on unspun urine. Mucus Present 12/27/2023 7:25 AM [facility] Comment:Microscopic done on unspun urine. AMORPHOUS Present(A) (none) 12/27/2023 7:25 AM [facility] Comment:Microscopic done on unspun urine. Urine URINE SPECIMEN / Unknown Non-Blood / Unknown 12/27/2023 6:56 AM CDT 12/27/2023 7:00 AM CDT Griselda Reed MD URINE [facility] [address] [place] [address] * (ABNORMAL) UA W/ SEDIMENT EXAM REFLEXED PER CRITERIA (12/27/2023 6:56 AM CDT) COLOR Brown(A) Yellow Color 12/27/2023 7:11 AM [facility] CLARITY Turbid(A) Clear Clarity 12/27/2023 7:11 AM [facility] SPECIFIC GRAVITY,URINE Unable to interpret due to interfering substance(A) 1.010, 1.015, 1.020, 1.025 12/27/2023 7:11 AM [facility] Comment:Canceled- Interferin g Substance PH,URINE Unable to interpret due to interfering substance(A) 6.0, 7.0, 8.0, 5.5, 6.5, 7.5, 8.5 12/27/2023 7:11 AM [facility] Comment:Canceled- Interferin g Substance UROBILINOGEN,Q UALITATIVE Unable to interpret due to interfering substance(A) Normal EU/dl 12/27/2023 7:11 AM [facility] Comment:Canceled- Interferin g Substance PROTEIN, URINE Unable to interpret due to interfering substance(A) Negative mg/dL 12/27/2023 7:11 AM [facility] Comment:Canceled- Interferin g Substance GLUCOSE, URINE Unable to interpret due to interfering substance(A) Negative mg/dL 12/27/2023 7:11 AM [facility] Comment:Canceled- Interferin g Substance KETONES,URINE Unable to interpret due to interfering substance(A) Negative mg/dL 12/27/2023 7:11 AM [facility] Comment:Canceled- Interferin g Substance BILIRUBIN,URIN E Unable to interpret due to interfering substance(A) Negative 12/27/2023 7:11 AM CDT [facility] Comment:Canceled- Interferin g Substance OCCULT BLOOD,URINE Unable to interpret due to interfering substance(A) Negative 12/27/2023 7:11 AM CDT [facility] Comment:Canceled- Interferin g Substance NITRITE Unable to interpret due to interfering substance(A) Negative 12/27/2023 7:11 AM T [facility] Comment:Canceled- Interferin g Substance LEUKOCYTE ESTERASE Unable to interpret due to interfering substance(A) Negative 12/27/2023 7:11 AM T [facility] Comment:Canceled- Interferin g Substance Urine URINE SPECIMEN / Unknown Non-Blood / Unknown 12/27/2023 6:56 AM CDT 12/27/2023 7:00 AM CDT Griselda Reed MD URINE Performing Organization Address [facility]/State/[facility] Co de Phone Number [facility] [address] [place] [address] * CBC W PLT NO DIFF (12/27/2023 6:41 AM CDT) WHITE BLOOD COUNT 9.5 4.5 - 11.0 thou/cu mm 12/27/2023 6:47 AM [facility] RED BLOOD COUNT 4.59 4.30 - 5.90 mil/cu mm 12/27/2023 6:47 AM T [facility] HEMOGLOBIN 14.5 13.5 - 17.5 g/dL 12/27/2023 6:47 AM T [facility] HEMATOCRIT 42.1 37.0 - 53.0 % 12/27/2023 6:47 AM [facility] MCV 92 80 - 100 fL 12/27/2023 6:47 AM [facility] MCH 31.6 26.0 - 34.0 pg 12/27/2023 6:47 AM [facility] MCHC 34.4 32.0 - 36.0 g/dL 12/27/2023 6:47 AM [facility] RDW 12.5 11.5 - 15.5 % 12/27/2023 6:47 AM [facility] PLATELET COUNT 177 140 - 440 thou/cu mm 12/27/2023 6:47 AM [facility] MPV 11.0 6.5 - 11.0 fL 12/27/2023 6:47 AM [facility] Blood BLOOD SPECIMEN / Unknown Venipuncture / Unknown 12/27/2023 6:41 AM CDT 12/27/2023 6:43 AM T Griselda Reed MD HEMATOLOGY [facility] [address] [place] [address] * BASIC METABOLIC PANEL (12/27/2023 6:41 AM CDT) SODIUM 141 136 - 145 mmol/L 12/27/2023 7:03 AM [facility] POTASSIUM 4.0 3.5 - 5.1 mmol/L 12/27/2023 7:03 AM [facility] CHLORIDE 105 98 - 107 mmol/L 12/27/2023 7:03 AM [facility] CO2,TOTAL 25 22 - 29 mmol/L 12/27/2023 7:03 AM [facility] ANION GAP 11 5 - 18 12/27/2023 7:03 AM [facility] GLUCOSE 95 70 - 99 mg/dL 12/27/2023 7:03 AM [facility] CALCIUM 9.2 8.6 - 10.0 mg/dL 12/27/2023 7:03 AM [facility] BUN 16 6 - 20 mg/dL 12/27/2023 7:03 AM [facility] CREATININE 0.97 0.70 - 1.20 mg/dL 12/27/2023 7:03 AM [facility] BUN/CREAT RATIO 16 10 - 20 4 7:03 AM T [facility] eGFR >90 >90 mL/min/1.7 3m2 12/27/2023 7:03 AM T [facility] Comment:As of 2021, eG FR is calculated by the CKD-EPI creatinine equation without race adjustment. ??eGFR can be influenced by muscle mass, exercise, and diet. ??The reported eGFR is an estimation only and is only applicable if the renal function is stable. Blood BLOOD SPECIMEN / Unknown Venipuncture / Unknown 12/27/2023 6:41 AM CDT 12/27/2023 6:43 AM CDT Griselda Reed MD CHEMISTRY [facility] [address] [place] [address] * (ABNORMAL) LIPID PANEL (03/16/2019 9:55 AM CDT) [facility] CHOLESTEROL,TOTAL 161 100 - 199 mg/dL 03/16/2019 10:51 AM CDT [facility] TRIGLYCERIDES 159(H) <150 mg/dL 03/16/2019 10:51 AM CDT [facility] HDL CHOLESTEROL 30(L) >40 mg/dL 9 10:51 AM CDT [facility] NON-HDL CHOLESTEROL 131 <145 mg/dl 03/16/2019 10:51 AM CDT [facility] CHOL/HDL RATIO 5.37(H) <4.50 03/16/2019 10:51 AM CDT [facility] LDL CHOLESTEROL 99 <=130 mg/dL 03/16/2019 10:51 AM CDT [facility] PROVIDER ORDERED STATUS RANDOM 03/16/2019 10:51 AM CDT [facility] Blood BLOOD SPECIMEN / Unknown Venipuncture / Unknown 03/16/2019 9:55 AM CDT 03/16/2019 10:00 AM CDT Atif Owen MD CHEMISTRY [address] [address] from Last 3 Months or Most Recently Relevant to Health Maintenance Advance Directives * Full Code (Latest Code Status on File) Date Activated Date Inactivated Comments 06/29/2022 7:31 PM 06/30/2022 3:53 PM Question Answer Comments Code Status Discussion: Reviewed Preferences * Full Code Date Activated Date Inactivated Comments 02/06/2022 11:13 AM 02/08/2022 1:19 PM Question Answer Comments Code Status Discussion: Reviewed Preferences Care Teams Food Service Aide Relationship Specialty Start Date End Date Darrell Strauss MD [address] [place] [address] PCP - General Family Practice 06/08/22
--- OUTSIDE RECORDS SUMMARY | 2024-01-17 11:57 | XMS_ITS | Clinical Summary ---
Author Name Unknown Organization [facility] Address [address] [place] [address] Care Team Providers Care Police Artist Name Role Phone Unavailable Primary Care Provider Unavailabl e Source Comments You are receiving this document as you are listed as the primary care provider,follow-up provider, or the patient has been referred to you for consultation.This is in compliance with the Medicare and[facility] EHR Incentive Program,which states Providers who transition their patient to another setting of careor provider of care or refers their patient to another provider of care shouldprovide summary care record for each transition of care or referral. [facility] Allergies Active Allergy Reactions Criticality Noted Date Comments Homeopathic Products Runny Nose 03/16/2006 Medications Medication Sig Dispensed Refills Start Date End Date Status aspirin EC 81 MG enteric coated tablet Act helen atorvastatin 10 mg TABS Active betamethasone dipropionate (DIPROSONE) 0.05 % ointment Active fexofenadine (DAYDAY) 180 MG tablet Active LORazepam (ATIVAN) 1 MG tablet Active montelukast (SINGULAIR) 10 MG tablet Active raNITIdine (ZANTAC) 150 MG tablet Take 150 mg by mouth. Active Sennosides (SENNA) 8.6 MG tablet Active sertraline (ZOLOFT) 100 MG tablet Take 100 mg by mouth daily. 04/21/2021 Active sildenafil (VIAGRA) 100 MG tablet Active oxyCODONE (ROXICODONE) 5 MG immediate release tabletIndications:Acut e post-operative pain Take 1 Tablet (5 mg) by mouth every 4 hours as needed. 20 Tablet 07/06/2022 Active cyclobenzaprine (FLEXERIL) 10 MG tablet Take 1 Tablet (10 mg) by mouth three times a day as needed. 30 Tablet 07/06/2022 Active Active Problems Problem Noted Date Diagnosed Date Depression 05/16/2021 Hayfever 05/16/2021 High cholesterol 05/16/2021 Right carpal tunnel syndrome 05/16/2021 Asthma, mild intermittent 05/14/2018 Encounter for long-term (cur rent) use of high-risk medication 12/23/2008 Hyperlipidemia 12/23/2008 Adjustment disorder with depressed mood 08/02/20 07 Lumbago 11/07/2006 Pain in joint, shoulder region 11/07/2006 Social History Tobacco Use Types Packs/Day Years Used Date Smoking Tobacco: Never Smokeless Tobacco: Never Sex and Gender Information Value Date Recorded Sex Assigned at Male 05/15/2021 8:10 AM CDT Gender Identity Male 05/15/2021 8:10 AM CDT Sexual Orientation Straight 05/15/2021 8: 10 AM CDT Last Filed Vital Signs Vital Sign Reading Time Taken Comments Blood Pressure 149/104 08/11/2021 8:33 AM CDT Pulse 87 08/11/2021 8:33 AM CDT Temperature - - Respiratory Rate 87 08/11/2021 8:33 AM CDT Oxygen Saturation - - Inhaled Oxygen Concentration - - Weight 124.7 kg (275 lb) 01/10/2022 9:10 AM CDT Height 185.4 cm (6' 1) 01/10/2022 9:10 AM CDT Body Mass Index 36.28 01/10/2022 9:10 AM CDT Plan of Treatment Health Maintenance Due Date Last Done Comments Colon Cancer Screening Plan Due 1976 Hep C Screening (Preventive Services) 1976 Asthma ACT 1980 IPV (Polio) (3 of 3 - 4-dose series) 09/01/1982 03/01/1982, 01/18/1979 Pneumococcal (1 - PCV) 1982 HIV Screening (Preventive Services) 1992 Adult Preventive Visit 1994 HepB (1) 1995 Cholesterol 2011 COVID-19 Vaccine (3 - season) 2023 02/16/2021, 01/18/2021 DTaP/Tdap/Td (5 - Tdap) 04/20/2026 04/20/20 16, 07/29/2007, 09/17/1995, Additional history exists Zoster/Shingles (1 of 2) 2026 HepA Aged Out 04/20/2016, 03/2012, 02/05/2012 No longer eligible based on patient's age to complete this topic Influenza Completed 07/02/2023, 07/14, 10/24/2021, Additional history exists Hib Aged Out No longer eligi ble based on patient's age to complete this topic MCV4 Aged Out No longer eligi ble based on patient's age to complete this topic Andrei Reyes Personal/Family Self 1975 [address] [place] [address] Andrei Reyes Personal/Family Self [address] [place] [id number] Andrei Reyes Personal/Family Self 1975 [address] [place] [address]
== END 2024-01-09 10:41 | disposition home or self-care (01) ==
LOC: NFLDREF 01-10 06:52
PROVIDERS: PCP Family Medicine; Referring Provider Family Medicine; Visit Provider Family Medicine
DX: J01.90 Acute sinusitis, unspecified (principal)
CPT/HCPCS: 81001

== ENCOUNTER 2024-10-23 09:30 | Outpatient (CLI) | payer BC, SELFPAY | END 2024-10-23 09:31 | disposition home or self-care (01) | PROVIDERS: PCP Family Medicine; Visit Provider Family Medicine | DX: E78.2 Mixed hyperlipidemia (principal); E55.9 Vitamin D deficiency, unspecified; Z79.899 Other long term (current) drug therapy | CPT/HCPCS: 80048; 80061; 82306; 84460 ==

== ENCOUNTER 2024-12-01 15:29 | Outpatient (CLI) | payer BC, SELFPAY ==
--- NOTE | 2024-12-08 11:57 | W.PM.SLEEP ---
Sleep Study Details Details Interpreting Provider: Dimple Date of Sleep Study: 12/01/24 Sleep Study Details: STUDY TYPE:? Home unattended ? BMI:? 39.33 ORDERING PROVIDER:Samra Musa INDICATION:? Concern for sleep apnea ? SLEEP SUMMARY:? 328 minutes monitored RESPIRATORY SUMMARY:? AHI 32.4, supine 54.5, right lateral 22.3 Low oxygen 79 6% of study oxygen less than 90% Snoring 84.8% PERIODIC LIMB MOVEMENTS OF SLEEP:? Not recorded CARDIAC:? Range 76-119, mean 90.5 beats per minute IMPRESSION:? Severe obstructive sleep apnea with supine position dependency RECOMMENDATION: Treatment options include CPAP AutoSet versus in-lab titration. Weight loss is also recommended
== END 2024-12-01 15:30 | disposition home or self-care (01) ==
PROVIDERS: PCP Family Medicine; Visit Provider Otolaryngology
DX: G47.33 Obstructive sleep apnea (adult) (pediatric) (principal)
CPT/HCPCS: 95806